=== PATIENT | male | born 2005 | race African-American/Black ===

== ENCOUNTER 2023-10-08 13:54 | Outpatient (CLI) | payer OTHER, SELFPAY ==
--- NOTE | ~2023-10-08 | XR_ITS ---
EXAMINATION: XR foot RT min 3V DATE: 10/08/2023 14:23 INDICATION: Right ankle injury. TECHNIQUE: 4 views of right foot were obtained. COMPARISON: None. FINDINGS: Bone alignment is normal. There are chips of bone distal to medial and lateral malleoli. Ellie int spaces are normal. IMPRESSION: 1. Chips of bone distal to the medial and lateral malleoli, which may be acute avulsion fractures or chronic findings. Reviewed, dictated and finalized at location A.
--- NOTE | ~2023-10-08 | XR_ITS ---
EXAMINATION: XR ankle RT min 3V DATE: 10/08/2023 14:23 INDICATION: Right ankle injury. TECHNIQUE: 4 views of right ankle were obtained. COMPARISON: None. FINDINGS: Bone alignment is normal. There are chips of bone distal to medial and lateral malleoli. Ellie int spaces are normal. There is ankle soft tissue swelling. IMPRESSION: 1. Chips of bone distal to the medial and lateral malleoli which may be acute avulsion fractures or c hronic findings. Reviewed, dictated and finalized at location A. IMPRESSION: 1. Chips of bone distal to the medial and lateral malleoli which may be acute a vulsion fractures or chronic findings.
== END 2023-10-08 13:55 | disposition home or self-care (01) ==
LOC: ANHIMG 14:02
PROVIDERS: Visit Provider Nurse Practitioner
DX: S99.911A Unspecified injury of right ankle, initial encounter (principal); X58.XXXA Exposure to other specified factors, initial encounter; R93.6 Abnormal findings on diagnostic imaging of limbs
CPT/HCPCS: 73610; 73630